=== PATIENT | female | born 2005 | race Two or more races ===

== ENCOUNTER 2025-04-11 13:31 | Emergency (ER) | payer MEDICAID ==
[~2025-04-11] VITALS: Ht 160 cm; Wt 60.0 kg
[2025-04-11 13:42] VITALS: TEMP 98.1
[2025-04-11 14:42] LABS: PLATELET COUNT (AUTO) 294 K/uL (150-450); RED BLOOD CELL COUNT(AUTO) 4.34 MIL/uL (4.00-5.20); RED CELL DISTRIBUTION WIDTH 14.4 % (11.5-14.5); WHITE BLOOD COUNT (AUTO) 8.8 K/uL (4.5-11.0)
[2025-04-11 14:52] LABS: CALCIUM, TOTAL 8.2 mg/dL (8.8-10.5); CREATININE 0.69 mg/dL (0.60-1.30); GLOMERULAR FILTR. RATE CALC > 60 mL/min (>60); GLUCOSE,RANDOM 88 mg/dL (70-110); SODIUM SERUM 139 mmol/L (136-145); UREA NITROGEN, BLOOD 13 mg/dL (7-18)
[2025-04-11 15:01] LABS: ASPARTATE AMINOTRANSFERASE 19 U/L (15-37); HCG,QUANTITATIVE < 1 mIU/mL (0-6); TOTAL PROTEIN, SERUM 6.8 g/dL (6.4-8.2)
[2025-04-11] MEDS: SODIUM CHLORIDE 0.9% 1,000 ML IV ONE (15:15)
[2025-04-11 15:38] LABS: APPEARANCE,URINE CLEAR (CLEAR); GLUCOSE, URINE (UA) NEGATIVE (NEGATIVE); LEUKOCYTE ESTERASE ,URINE NEGATIVE (NEGATIVE); NITRATE,URINE NEGATIVE (NEGATIVE); OCCULT BLOOD,URINE NEGATIVE (NEGATIVE); SPECIFIC GRAVITIY, URINE 1.033 (1.003-1.030)
[2025-04-11 17:54] VITALS: BP 98/61; PULSE 92; RESP 18; O2SAT 98
== END 2025-04-11 17:55 | disposition home or self-care (01) ==
LOC: EMS 13:31
DX: N94.6 Dysmenorrhea, unspecified (principal); F12.90 Cannabis use, unspecified, uncomplicated; N89.8 Other specified noninflammatory disorders of vagina
CPT/HCPCS: 99284; 96360; 76856; 96361; 80048; 80076; 81003; 83690; 84702; 85025; 36415; J7030